=== PATIENT | female | born 1950 | race Asian ===

== ENCOUNTER → 2017-11-26 | Outpatient (CLI) | payer BC ==
[~2017-11-26] MED LIST: LIDOCAINE-MPF 1%, 2ML ONE; LORA-446 PO; METO25TA35 PO
== END ==
LOC: RAD 09:40
PROVIDERS: ATTEND Internal Medicine Hematology & Oncology
DX: Z45.2 Encounter for adjustment and management of vascular access device (principal); Z51.11 Encounter for antineoplastic chemotherapy; C54.1 Malignant neoplasm of endometrium; J90 Pleural effusion, not elsewhere classified
CPT/HCPCS: 36569; 76937; 77001; C1751; J3490

== ENCOUNTER 2017-11-27 15:59 | Inpatient (IN) | payer MEDICARE, BC ==
[~2017-11-27] VITALS: Ht 162.6 cm; Wt 65.6 kg
[2017-11-27 16:48] LABS: BASOPHILS # (AUTO) 0.01 x10^3/uL (0-0.1); BASOPHILS % (AUTO) 0 % (0-1); EOSINOPHILS # (AUTO) 0.04 x10^3/uL (0-0.4); EOSINOPHILS % (AUTO) 1 % (1-7); LYMPHOCYTES # (AUTO) 0.79 x10^3/uL (1-3.4); LYMPHOCYTES % (AUTO) 10 % (22-44); MD NO; MEAN CORPUSCULAR HEMOGLOBIN 30.2 pg (27.0-34.8); MEAN CORPUSCULAR HGB CONC 33.5 g/dL (32.4-35.8); MEAN CORPUSCULAR VOLUME 90.2 fL (80-100); MEAN PLATELET VOLUME 7.7 fL (7.4-10.4); MONOCYTES # (AUTO) 0.31 x10^3/uL (0.2-0.8); MONOCYTES % (AUTO) 4 % (2-9); NEUTROPHILS # (AUTO) 7.07 x10^3/uL (1.8-6.8); NEUTROPHILS % (AUTO) 86 % (42-75); PLATELET COUNT 334 x10^3/uL (130-400); RED BLOOD COUNT 4.18 x10^6/uL (3.82-5.3); RED CELL DISTRIBUTION WIDTH 13.9 % (9.6-15.2)
[2017-11-27 16:57] LABS: ALBUMIN 3.1 g/dL (3.4-5.0); ANION GAP 9 mmol/L (5-15); CALCIUM 8.6 mg/dL (8.5-10.1); CHLORIDE 93 mmol/L (98-107)
[2017-11-27 17:02] LABS: ALANINE AMINOTRANSFERASE 97 U/L (12-78); ALKALINE PHOSPHATASE 104 U/L (45-117); BILIRUBIN,TOTAL 0.5 mg/dL (0.2-1.0); CREATININE 0.59 mg/dL (0.55-1.02); TROPONIN I < 0.015 ng/mL (0.000-0.045)
[2017-11-27] MEDS ORDERED: LORA-446 PO (17:12)
[2017-11-27] MEDS ORDERED: METO25TA35 PO (17:12)
[2017-11-27] MEDS ORDERED: LIDOCAINE-MPF 1%, 2ML ONE (17:56)
[2017-11-27] MEDS ORDERED: SODIUM CHLORIDE 0.9% 1,000ML IVBOLUS ONE (18:00)
[2017-11-28] MEDS ORDERED: ONDANSETRON 2MG/ML, 2ML IVPush PRN
[2017-11-28] MEDS ORDERED: BISACODYL 10 MG SUPP PR PRN
[2017-11-28] MEDS ORDERED: POLYETHYLENE GLYCOL 17 GM PACKET PO PRN
[2017-11-28] MEDS ORDERED: ACETAMINOPHEN 325 MG TABLET PO PRN
[2017-11-28 00:44] VITALS: BP 138/86
[2017-11-28] MEDS: SODIUM CHLORIDE 0.9% 1,000 ML IV SCH ×2 (02:27→14:02)
[2017-11-28 02:37] VITALS: BP 157/77
[2017-11-28 05:38] LABS: BASOPHILS # (AUTO) 0.02 x10^3/uL (0-0.1); BASOPHILS % (AUTO) 0 % (0-1); EOSINOPHILS # (AUTO) 0.03 x10^3/uL (0-0.4); EOSINOPHILS % (AUTO) 0 % (1-7); LYMPHOCYTES # (AUTO) 0.85 x10^3/uL (1-3.4); LYMPHOCYTES % (AUTO) 10 % (22-44); MD NO; MEAN CORPUSCULAR HEMOGLOBIN 30.1 pg (27.0-34.8); MEAN CORPUSCULAR HGB CONC 33.6 g/dL (32.4-35.8); MEAN CORPUSCULAR VOLUME 89.6 fL (80-100); MEAN PLATELET VOLUME 7.3 fL (7.4-10.4); MONOCYTES # (AUTO) 0.34 x10^3/uL (0.2-0.8); MONOCYTES % (AUTO) 4 % (2-9); NEUTROPHILS # (AUTO) 7.53 x10^3/uL (1.8-6.8); NEUTROPHILS % (AUTO) 86 % (42-75); PLATELET COUNT 298 x10^3/uL (130-400); RED BLOOD COUNT 4.26 x10^6/uL (3.82-5.3)
[2017-11-28 05:45] LABS: ALBUMIN 2.3 g/dL (3.4-5.0); CALCIUM 8.2 mg/dL (8.5-10.1); CHLORIDE 96 mmol/L (98-107)
[2017-11-28 05:49] LABS: ALANINE AMINOTRANSFERASE 66 U/L (12-78); ALKALINE PHOSPHATASE 76 U/L (45-117); ANION GAP 10 mmol/L (5-15); CREATININE 0.47 mg/dL (0.55-1.02); TOTAL PROTEIN 5.6 g/dL (6.4-8.2)
[2017-11-28 06:35] VITALS: BP 156/88
[2017-11-28] MEDS: SENNA/DOCUSATE TABLET PO SCH (09:41)
[2017-11-28] MEDS ORDERED: METOPROLOL TARTRATE 25 MG TABLET PO SCH ×2 (10:00)
[2017-11-28] MEDS ORDERED: METOPROLOL TARTRATE 50 MG TABLET PO SCH (10:00)
[2017-11-28 13:58] VITALS: BP 147/88
[2017-11-28 16:26] LABS: INTERNATIONAL NORMALIZED RATIO 1.09 (0.93-1.1); PROTHROMBIN TIME 11.3 Seconds (9.6-11.5)
[2017-11-28] MEDS: METOPROLOL TARTRATE 25 MG TABLET PO SCH (17:44)
[2017-11-28 19:01] VITALS: BP 144/85
[2017-11-28] MEDS: LORazepam 1MG TABLET PO SCH ×2 (21:00)
[2017-11-29] MEDS: SODIUM CHLORIDE 0.9% 1,000 ML IV SCH ×2 (02:20→17:58)
[2017-11-29 03:16] VITALS: BP 138/82
[2017-11-29] MEDS: METOPROLOL TARTRATE 25 MG TABLET PO SCH ×2 (05:09→18:05)
[2017-11-29] MEDS ORDERED: LIDOCAINE 2%, 20ML ONE (08:49)
[2017-11-29] MEDS: SENNA/DOCUSATE TABLET PO SCH (09:00)
[2017-11-29] MEDS ORDERED: FENTANYL PF 100 MCG/2ML ONE (09:06)
[2017-11-29] MEDS ORDERED: NALOXONE 1 MG/ML, 2ML ONE (09:06)
[2017-11-29] MEDS ORDERED: FLUMAZENIL 0.1 MG/1 ML, 5ML ONE (09:06)
[2017-11-29] MEDS ORDERED: MIDAZOLAM 1 MG/ML, 5ML ONE (09:06)
[2017-11-29 10:19] VITALS: BP 110/68
[2017-11-29 14:00] VITALS: BP 107/69
[2017-11-29 20:06] VITALS: BP 117/78
[2017-11-29] MEDS: LORazepam 1MG TABLET PO SCH (20:17)
[2017-11-30 01:29] VITALS: BP 120/77
[2017-11-30 04:36] LABS: BASOPHILS # (AUTO) 0.02 x10^3/uL (0-0.1); BASOPHILS % (AUTO) 0 % (0-1); EOSINOPHILS # (AUTO) 0.09 x10^3/uL (0-0.4); EOSINOPHILS % (AUTO) 2 % (1-7); LYMPHOCYTES # (AUTO) 0.81 x10^3/uL (1-3.4); LYMPHOCYTES % (AUTO) 14 % (22-44); MD NO; MEAN CORPUSCULAR HEMOGLOBIN 29.7 pg (27.0-34.8); MEAN CORPUSCULAR HGB CONC 32.9 g/dL (32.4-35.8); MEAN CORPUSCULAR VOLUME 90.1 fL (80-100); MEAN PLATELET VOLUME 7.1 fL (7.4-10.4); MONOCYTES # (AUTO) 0.27 x10^3/uL (0.2-0.8); MONOCYTES % (AUTO) 5 % (2-9); NEUTROPHILS # (AUTO) 4.74 x10^3/uL (1.8-6.8); NEUTROPHILS % (AUTO) 80 % (42-75); PLATELET COUNT 289 x10^3/uL (130-400); RED BLOOD COUNT 3.72 x10^6/uL (3.82-5.3); RED CELL DISTRIBUTION WIDTH 13.9 % (9.6-15.2)
[2017-11-30 04:45] LABS: ALBUMIN 1.9 g/dL (3.4-5.0); ANION GAP 7 mmol/L (5-15); CHLORIDE 102 mmol/L (98-107)
[2017-11-30 04:48] LABS: ALANINE AMINOTRANSFERASE 37 U/L (12-78); ALKALINE PHOSPHATASE 54 U/L (45-117); BILIRUBIN,TOTAL 0.8 mg/dL (0.2-1.0); CREATININE 0.35 mg/dL (0.55-1.02); TOTAL PROTEIN 4.9 g/dL (6.4-8.2)
[2017-11-30 06:26] VITALS: BP 114/73
[2017-11-30 07:55] VITALS: BP 114/73
[2017-11-30] MEDS: SODIUM CHLORIDE 0.9% 1,000 ML IV SCH ×2 (08:41→23:00)
[2017-11-30] MEDS: METOPROLOL TARTRATE 25 MG TABLET PO SCH ×2 (08:42→18:14)
[2017-11-30] MEDS: SENNA/DOCUSATE TABLET PO SCH (08:42)
[2017-11-30] MEDS: AZITHROMYCIN 500 MG in SODIUM CHLORIDE 0.9% 250 ML IV SCH (10:20)
[2017-11-30 13:40] VITALS: BP 123/76
[2017-11-30 18:13] VITALS: BP 105/72
[2017-11-30] MEDS: LORazepam 1MG TABLET PO SCH (20:32)
[2017-11-30 21:21] VITALS: BP 115/78
[2017-12-01 06:11] VITALS: BP 122/75
[2017-12-01 07:42] VITALS: BP 105/71
[2017-12-01] MEDS: SENNA/DOCUSATE TABLET PO SCH (08:59)
[2017-12-01] MEDS: AZITHROMYCIN 500 MG in SODIUM CHLORIDE 0.9% 250 ML IV SCH (08:59)
[2017-12-01] MEDS: METOPROLOL TARTRATE 25 MG TABLET PO SCH ×2 (08:59→17:44)
[2017-12-01] MEDS: CEFTRIAXONE PMX 2GM/50ML 50 ML IV SCH (10:18)
[2017-12-01 13:21] VITALS: BP 119/75
[2017-12-01] MEDS: SODIUM CHLORIDE 0.9% 1,000 ML IV SCH (14:39)
[2017-12-01 17:43] VITALS: BP 110/67
[2017-12-01 19:23] VITALS: BP 97/64
[2017-12-01 19:29] VITALS: BP 119/74
[2017-12-01] MEDS: LORazepam 1MG TABLET PO SCH (21:00)
[2017-12-02 01:26] VITALS: BP 110/72
[2017-12-02] MEDS: SODIUM CHLORIDE 0.9% 1,000 ML IV SCH (05:36)
[2017-12-02] MEDS: METOPROLOL TARTRATE 25 MG TABLET PO SCH ×2 (05:49→17:18)
[2017-12-02 08:27] VITALS: BP 138/76
[2017-12-02] MEDS: SENNA/DOCUSATE TABLET PO SCH (08:37)
[2017-12-02] MEDS: CEFTRIAXONE PMX 2GM/50ML 50 ML IV SCH (08:38)
[2017-12-02] MEDS: AZITHROMYCIN 500 MG in SODIUM CHLORIDE 0.9% 250 ML IV SCH (10:25)
[2017-12-02] MEDS ORDERED: MAGNESIUM SULFATE PMX 2GM/50ML 50 ML IV ONE (13:00)
[2017-12-02 13:29] VITALS: BP 134/81
[2017-12-02] MEDS ORDERED: POTASSIUM CHLORIDE 20 MEQ TAB.ER.PRT PO ONE (14:00)
[2017-12-02 19:56] VITALS: BP 113/72
[2017-12-02] MEDS: LORazepam 1MG TABLET PO SCH (20:30)
[2017-12-03] MEDS: SODIUM CHLORIDE 0.9% 1,000 ML IV SCH (00:55)
[2017-12-03 01:01] VITALS: BP 109/66
[2017-12-03 04:18] LABS: BASOPHILS # (AUTO) 0.04 x10^3/uL (0-0.1); BASOPHILS % (AUTO) 1 % (0-1); EOSINOPHILS # (AUTO) 0.21 x10^3/uL (0-0.4); EOSINOPHILS % (AUTO) 4 % (1-7); LYMPHOCYTES % (AUTO) 23 % (22-44); MD NO; MEAN CORPUSCULAR HEMOGLOBIN 30.6 pg (27.0-34.8); MEAN CORPUSCULAR VOLUME 89.9 fL (80-100); MEAN PLATELET VOLUME 6.9 fL (7.4-10.4); MONOCYTES # (AUTO) 0.27 x10^3/uL (0.2-0.8); MONOCYTES % (AUTO) 5 % (2-9); NEUTROPHILS # (AUTO) 3.61 x10^3/uL (1.8-6.8); NEUTROPHILS % (AUTO) 68 % (42-75); PLATELET COUNT 280 x10^3/uL (130-400); RED BLOOD COUNT 3.28 x10^6/uL (3.82-5.3); RED CELL DISTRIBUTION WIDTH 14.2 % (9.6-15.2)
[2017-12-03 04:24] LABS: ALANINE AMINOTRANSFERASE 30 U/L (12-78); ALBUMIN 1.9 g/dL (3.4-5.0); ANION GAP 8 mmol/L (5-15); CALCIUM 8.3 mg/dL (8.5-10.1); CHLORIDE 109 mmol/L (98-107); CREATININE 0.39 mg/dL (0.55-1.02)
[2017-12-03 04:26] LABS: ALKALINE PHOSPHATASE 43 U/L (45-117); BILIRUBIN,TOTAL 0.3 mg/dL (0.2-1.0); TOTAL PROTEIN 4.9 g/dL (6.4-8.2)
[2017-12-03] MEDS: METOPROLOL TARTRATE 25 MG TABLET PO SCH (06:00)
[2017-12-03 07:23] VITALS: BP 123/80
[2017-12-03] MEDS ORDERED: MAGNESIUM OXIDE 400 MG TABLET PO SCH (09:00)
[2017-12-03] MEDS ORDERED: LIDOCAINE 2%, 20ML ONE (09:09)
[2017-12-03] MEDS ORDERED: MIDAZOLAM 1 MG/ML, 5ML ONE (09:12)
[2017-12-03] MEDS ORDERED: FLUMAZENIL 0.1 MG/1 ML, 5ML ONE (09:12)
[2017-12-03] MEDS ORDERED: FENTANYL PF 100 MCG/2ML ONE (09:12)
[2017-12-03] MEDS ORDERED: NALOXONE 1 MG/ML, 2ML ONE (09:12)
[2017-12-03] MEDS: CEFTRIAXONE PMX 2GM/50ML 50 ML IV SCH (11:43)
[2017-12-03] MEDS: SENNA/DOCUSATE TABLET PO SCH (11:43)
[2017-12-03] MEDS ORDERED: CEFD300C37 PO (12:43)
[2017-12-03] MEDS ORDERED: ONDA4TAB13 SL (12:43)
[2017-12-03] MEDS ORDERED: POLY17PO5 PO (12:43)
[2017-12-03] MEDS ORDERED: AZIT500T5 PO (12:43)
[2017-12-03] MEDS ORDERED: MAGN400T26 PO (12:43)
[2017-12-03] MEDS ORDERED: OXYC5TAB3 PO (12:45)
[2017-12-03 12:46] VITALS: BP 114/76
[2017-12-03] MEDS: AZITHROMYCIN 500 MG in SODIUM CHLORIDE 0.9% 250 ML IV SCH (13:26)
== END 2017-12-03 16:35 | disposition home or self-care (01) | DRG 199 ==
LOC: ED 21:52 → EDIP 22:38 → 4WST 11-28 00:23 → 3NW 12-01 18:15
PROVIDERS: ADMIT Hospitalist; ATTEND Internal Medicine
PROC: 0W993ZZ Drainage of Right Pleural Cavity, Percutaneous Approach (ICD-10-PCS; principal; 2017-11-27)
PROC: 0W9930Z Drainage of Right Pleural Cavity with Drainage Device, Percutaneous Approach (ICD-10-PCS; 2017-11-29)
PROC: 0JH63XZ Insertion of Tunneled Vascular Access Device into Chest Subcutaneous Tissue and Fascia, Percutaneous Approach (ICD-10-PCS; 2017-12-03)
PROC: 0W993ZZ Drainage of Right Pleural Cavity, Percutaneous Approach (ICD-10-PCS; 2017-12-03)
DX: J95.811 Postprocedural pneumothorax (principal); E43 Unspecified severe protein-calorie malnutrition; J18.9 Pneumonia, unspecified organism; K76.1 Chronic passive congestion of liver; C54.1 Malignant neoplasm of endometrium; E87.1 Hypo-osmolality and hyponatremia; I10 Essential (primary) hypertension; R74.0 Nonspecific elevation of levels of transaminase and lactic acid dehydrogenase [LDH]; R09.02 Hypoxemia; Z68.24 Body mass index [BMI] 24.0-24.9, adult; Z88.8 Allergy status to other drugs, medicaments and biological substances; Z85.21 Personal history of malignant neoplasm of larynx; Z90.710 Acquired absence of both cervix and uterus; Z90.49 Acquired absence of other specified parts of digestive tract
CPT/HCPCS: 32557; 36415; 71045; 76942; 80053; 82150; 82945; 83615; 83735; 83986; 84100; 84157; 84484; 85025; 85610; 87070; 87075; 87102; 87116; 87205; 87206; 88112; 88305; 89051; 93005; 96360; 99156; 99157; J0456; J0696; J2250; J3010; J3490; 32555; C1729; J2310; J3475; J7030; J7050

== ENCOUNTER 2017-12-14 16:17 | Emergency (ER) | payer BC, MEDICARE ==
[~2017-12-14] VITALS: Ht 162.6 cm; Wt 59.1 kg
[~2017-12-14 16:17] MED LIST changes: +AZIT500T5 PO; +CEFD300C37 PO; -LIDOCAINE-MPF 1%, 2ML ONE; +MAGN400T26 PO; +ONDA4TAB13 SL; +OXYC5TAB3 PO; +POLY17PO5 PO
[2017-12-14 19:03] VITALS: BP 143/74
== END 2017-12-14 19:16 | disposition home or self-care (01) ==
LOC: ED 16:41
DX: Z45.89 Encounter for adjustment and management of other implanted devices (principal); I10 Essential (primary) hypertension
CPT/HCPCS: 71046; 99284